=== PATIENT | male | born 1955 | race Caucasian/White ===

== ENCOUNTER → 2020-10-08 | Outpatient (CLI) | payer OTHER ==
--- NOTE | 2020-10-08 15:31 | RAD ---
EXAM: AP and lateral views left foot DATE: 10/08/2020 9:37 AM INDICATION: Reason: LEFT FOOT PAIN / Spl. Instructions: / History: COMPARISON: No Prior FINDINGS: AP and lateral views of the left foot were suited for evaluation. There is no evidence for acute frac ture or dislocation. Soft tissue swelling about the fifth MTP joint. Midfoot degenerative changes are seen. Calcaneal enthesopathy. IMPRESSION: No evidence of acute fracture or dislocation. Electronically signed by: Rohan Osullivan MD (10/08/2020 3:29 PM) [id number]
--- NOTE | 2020-10-08 15:32 | RAD ---
EXAM: AP and lateral views of left knee were suited for evaluation. DATE: 10/08/2020 9:37 AM INDICATION: Reason: LEFT FOOT AND KNEE PAIN / Spl. Instructions: / History: COMPARISON: No Prior FINDINGS: No evidence of acute fracture or dislocation. Medial cartilage joint space narrowing with small later al component osteophytes. Chondrocalcinosis. No knee joint effusion. However calcifications are seen. Mild decrease overall den sity. Small ossification at the medial aspect of the medial femoral condyle likely joint body. IMPRESSION: 1. Within the constraints of osteopenia, no evidence for acute fracture or dislocation. 2. Mild to moderate left knee joint osteoarthritis. 3. Chondrocalcinosis suggests component of COPD arthropathy. Electronically signed by: Rohan Osullivan MD (10/08/2020 3:30 PM) [id number]
== END ==
LOC: PMG 09:27
PROVIDERS: ATTEND Family Medicine
DX: M17.12 Unilateral primary osteoarthritis, left knee (principal); M85.88 Other specified disorders of bone density and structure, other site; M11.262 Other chondrocalcinosis, left knee
CPT/HCPCS: 73560; 73620

== ENCOUNTER → 2021-09-21 | Outpatient (CLI) | payer OTHER | LOC: LAB 14:43 | PROVIDERS: ATTEND Urology | DX: R97.20 Elevated prostate specific antigen [PSA] (principal) | CPT/HCPCS: G0103 ==

== ENCOUNTER 2021-10-02 11:25 | Emergency (ER) | payer MEDICARE, OTHER ==
[~2021-10-02] VITALS: Ht 175.3 cm; Wt 90.5 kg
[2021-10-02] MEDS ORDERED: ONDANSETRON PF 4 MG/2 ML VIAL. IVP ONE (11:45)
[2021-10-02] MEDS ORDERED: IV NORMAL SALINE 1,000ML 1,000 ML IV ONE (11:45)
--- NOTE | 2021-10-02 11:58 | PHYS DOC ---
Past History Past Surgical History: Other Additional Past Surgical Histo: Prostat Alcohol Use: None General Adult EDM: Chief Complaint: ABDOMINAL PAIN HPI: HPI: 65-year-old male presents with suprapubic abdominal pain and fever at home. He has had the symptoms for a couple of days. The abdominal pain is a cramping sensation. He denies any increased urinary frequency or dysuria. He did have a prostatectomy a few months ago. He has been doing well until now. He has no other significant surgical history. Review of Systems: Review of Systems: Constitutional: Denies fever or chills Eyes: Denies change in visual acuity HENT: Denies nasal congestion or sore throat Respiratory: Denies cough or shortness of breath Cardiovascular: Denies chest pain or edema GI: Suprapubic abdominal pain. Denies nausea, vomiting, bloody stools or diarrhea : Denies dysuria or increased urinary frequency. Musculoskeletal: Denies back pain or joint pain Integument: Denies rash Neurologic: Denies headache, focal weakness or sensory changes Endocrine: Denies polyuria or polydipsia Lymphatic: Denies swollen glands Psychiatric: Denies depression or anxiety Current Medications: Current Meds: Current Medications Medications (Trade) Dose Ordered Sig/Mateo Start Time Stop Time Status Last Admin Dose Admin Ondansetron HCl (Zofran) 4 mg 1X ONCE 10/02/21 11:45 10/02/21 11:50 DC Sodium Chloride 1,000 ml @ 1,000 mls/hr 1X ONCE 10/02/21 11:45 10/02/21 12:44 Allergies: Allergies: Allergies Coded Allergies Type Severity Reaction Last Updated Verified No Known Drug Allergies 10/02/21 No Physical Exam: PE: Constitutional: Well developed, well nourished, no acute distress, non-toxic appearance. [] HENT: Normocephalic, atraumatic, bilateral external ears normal, oropharynx moist, no oral exudates, nose normal. [] Eyes: PERRLA, EOMI, conjunctiva normal, no discharge. [] Neck: Normal range of motion, no tenderness, supple, no stridor. [] Cardiovascular: Heart rate regular rhythm, no murmur [] Lungs & Thorax: Bilateral breath sounds clear to auscultation [] Abdomen: Bowel sounds normal, soft, suprapubic tenderness, no masses, no pulsatile masses. [] Skin: Warm, dry, no erythema, no rash. [] Back: No tenderness, no CVA tenderness. [] Extremities: No tenderness, no cyanosis, no clubbing, ROM intact, no edema. [] Neurologic: Alert and oriented X 3, normal motor function, normal sensory function, no focal deficits noted. [] Psychologic: Affect normal, judgement normal, mood normal. [] Current Patient Data: Vital Signs: Vital Signs Date Time Temp Pulse Resp B/P (MAP) Pulse Ox O2 Delivery O2 Flow Rate FiO2 10/02/21 11:48 99.4 103 16 104/81 (89) 96 Room Air EKG: EKG: [] Radiology/Procedures: Radiology/Procedures: [] Impressions: Study: CT abdomen/pelvis with intravenous contrast Indication: Suprapubic pain. Comparison: None. Technique: Helical CT imaging performed of the abdomen and pelvis after the intravenous administration of 75 cc Omnipaque 300 contrast. Sagittal and coronal reformats were obtained. One or more of the following individualized dose reduction techniques were utilized for this examination: 1. Automated exposure control 2. Adjustment of the mA and/or kV according to patient size 3. Use of iterative reconstruction technique. Findings: Calcific coronary artery disease. Large hiatal hernia. No significant nodule or infiltrate at the lower lungs. Passive atelectasis along the medial left lower lobe adjacent to the hiatal hernia. Several low-attenuation foci within the liver the smaller of which are too small to characterize. The largest in the left hepatic lobe measures cystic density and is 1.5 cm AP. These are statistically most likely benign and less there is any pertinent clinical history that would suggest otherwise. Unremarkable gallbladder, biliary tree, pancreas, spleen and adrenal glands. Several subcentimeter hypoattenuating foci within both kidneys too small to characterize but statistically most likely benign. Upper pole left renal cyst measures simple density. No dedicated follow-up is needed per consensus recommendations. No hydronephrosis. Mildly thick-walled urinary bladder with surrounding inflammation. Mass effect on the bladder by a large fluid density collections within the space of Retzius. The collection on the left is greater in size measuring up to approximately 11.7 cm craniocaudal by 9.4 cm AP by 11.4 cm transverse. The collection on the right measures up to 5.8 cm craniocaudal by 8.7 cm AP by 3.5 cm transverse. Mild inflammation adjacent to these collections. The prostate is absent. Mild volume colonic stool burden. Normal appendix. No small bowel obstruction. The small portion of the stomach that remains below the diaphragm is unremarkable. Scattered calcified and noncalcified atheromatous plaque. No aortic aneurysm. No flow-limiting stenosis. Patent central portal veins and superior mesenteric vein. Both of the external iliac veins are compressed by the space of Retzius collections. No lymphadenopathy by size criteria. Retroperitoneal and iliac chain lymph nodes measure subcentimeter short axis. Scattered degenerative osseous findings. Chronic L4 height loss. Impression: 1. Mildly thick-walled urinary bladder which is deformed in the setting of prominent left larger than right space of Retzius fluid collections. In the setting of an absent prostate the collections are favored lymphoceles. The presumed lymphocele on the left measures up to 11.7 by 9.4 x 1.4 cm and on the right at 5.8 x 8.7 x 3.5 cm. Both of the collections compress the adjacent external iliac vein which could predispose to deep venous thrombosis. No hydronephrosis. 2. Large hiatal hernia. Calcific coronary artery disease favored hepatic and bilateral renal cysts though many are too small to characterize. Electronically signed by: SHASHA GAY MD (10/02/2021 1:47 PM) [id number] DICTATED AND SIGNED BY: SHASHA GAY MD DATE: 10/02/21 1329 CC: TAMIKO GARY DO; GABRIEL HOLLOWAY MD ~MTH0 0 Heart Score: C/O Chest Pain: N/A Risk Factors: Risk Factors: DM, Current or recent (<one month) smoker, HTN, HLP, family history of CAD, obesity. Risk Scores: Score 0 - 3: 2.5% MACE over next 6 weeks - Discharge Home Score 4 - 6: 20.3% MACE over next 6 weeks - Admit for Clinical Observation Score 7 - 10: 72.7% MACE over next 6 weeks - Early Invasive Strategies Course & Med Decision Making: Course & Med Decision Making Pertinent Labs and Imaging studies reviewed. (See chart for details) Patient's labs are significant for microcytic anemia. He has a potassium of 3.1. His urinalysis is negative for infection. The CT of the abdomen pelvis shows 2 large likely lymphoceles in the pelvis. See official read for more details. 1 of these is compressing compressing the external iliac vein. I will call the patient's urologist for consult about management. I spoke with the patient's urologist, Dr. Damian and he does not believe the patient needs to be admitted. He will see the patient in his office this week and discuss having a drain placed. He is stable for discharge at this time. [] Dragon Disclaimer: Dragon Disclaimer: This electronic medical record was generated, in whole or in part, using a voice recognition dictation system. Departure Departure: Impression: Primary Impression: Pelvic fluid collection Disposition: HOME / SELF CARE / HOMELESS Condition: STABLE Referrals: GABRIEL HOLLOWAY MD (PCP) Patient Instructions: Abdominal Pain, [id number] TAMIKO GARY DO Oct 02, 2021 11:57
[2021-10-02] MEDS ORDERED: IOHEXOL 300 MG/ML 75 ML VIAL. IV ONE (12:15)
[2021-10-02 12:28] LABS: BASO % 0 % (0-3); EOS # 0.1 x10^3/uL (0.0-0.7); EOS % 1 % (0-3); HEMATOCRIT 31.8 % (39.0-53.0); LYMPH # 0.5 x10^3/uL (1.0-4.8); LYMPH % 6 % (24-48); MEAN CORPUSCULAR HEMOGLOBIN 23 pg (25-35); MEAN CORPUSCULAR HGB CONC 31 g/dL (31-37); MEAN CORPUSCULAR VOLUME 72 fL (79-100); MONO # 1.3 x10^3/uL (0.0-1.1); MONO % 14 % (0-9); NEUT # 7.5 x10^3uL (1.8-7.7); NEUT % 79 % (31-73); PLATELET COUNT 220 x10^3/uL (140-400); RED BLOOD COUNT 4.41 x10^6/uL (4.30-5.70); RED CELL DISTRIBUTION WIDTH 16.8 % (11.5-14.5); WHITE BLOOD COUNT 9.5 x10^3/uL (4.0-11.0)
[2021-10-02 12:35] LABS: BACTERIA,URINE 0 /HPF (0-FEW); BILIRUBIN,URINE SMALL (NEG); CLARITY,URINE CLEAR; COLOR,URINE YELLOW; GLUCOSE,URINE NEG (NEG); HYALINE CASTS, URINE MOD /HPF; NITRITE,URINE NEG (NEG); RBC,URINE OCC /HPF (0-2); SQUAMOUS EPITHELIAL CELL,UR OCC /LPF; WBC,URINE OCC /HPF (0-4)
[2021-10-02 12:38] LABS: CALCIUM 8.4 mg/dL (8.5-10.1); CREATININE 1.1 mg/dL (0.7-1.3); POTASSIUM 3.1 mmol/L (3.5-5.1)
[2021-10-02 12:44] LABS: ALBUMIN 2.9 g/dL (3.4-5.0); ALBUMIN/GLOBULIN RATIO 0.6 (1.0-1.7); TOTAL BILIRUBIN 1.1 mg/dL (0.2-1.0); TOTAL PROTEIN 7.4 g/dL (6.4-8.2)
--- NOTE | 2021-10-02 13:49 | RAD ---
Study: CT abdomen/pelvis with intravenous contrast Indication: Suprapubic pain. Comparison: None. Technique: Helical CT imaging performed of the abdomen and pelvis after the intravenous administratio n of 75 cc Omnipaque 300 contrast. Sagittal and coronal reformats were obtained. One or more of the following individualized dose reduction techniques were utilized for this examinat ion: 1. Automated exposure control 2. Adjustment of the mA and/or kV according to patient size 3. Use of iterative reconstruction technique. Findings: Calcific coronary artery disease. Large hiatal hernia. No significant nodule or infiltrate at the low er lungs. Passive atelectasis along the medial left lower lobe adjacent to the hiatal hernia. Several low-attenuation foci within the liver the smaller of which are too small to characterize. The largest in the left hepatic lobe measures cystic density and is 1.5 cm AP. These are statistically m ost likely benign and less there is any pertinent clinical history that would suggest otherwise. Unre markable gallbladder, biliary tree, pancreas, spleen and adrenal glands. Several subcentimeter hypoat tenuating foci within both kidneys too small to characterize but statistically most likely benign. Up per pole left renal cyst measures simple density. No dedicated follow-up is needed per consensus jerri mmendations. No hydronephrosis. Mildly thick-walled urinary bladder with surrounding inflammation. Mass effect on the bladder by a la rge fluid density collections within the space of Retzius. The collection on the left is greater in s ize measuring up to approximately 11.7 cm craniocaudal by 9.4 cm AP by 11.4 cm transverse. The collec tion on the right measures up to 5.8 cm craniocaudal by 8.7 cm AP by 3.5 cm transverse. Mild inflamma tion adjacent to these collections. The prostate is absent. Mild volume colonic stool burden. Normal appendix. No small bowel obstruction. The small portion of t he stomach that remains below the diaphragm is unremarkable. Scattered calcified and noncalcified atheromatous plaque. No aortic aneurysm. No flow-limiting stenos is. Patent central portal veins and superior mesenteric vein. Both of the external iliac veins are co mpressed by the space of Retzius collections. No lymphadenopathy by size criteria. Retroperitoneal and iliac chain lymph nodes measure subcentimete r short axis. Scattered degenerative osseous findings. Chronic L4 height loss. Impression: 1. Mildly thick-walled urinary bladder which is deformed in the setting of prominent left larger hiren n right space of Retzius fluid collections. In the setting of an absent prostate the collections are favored lymphoceles. The presumed lymphocele on the left measures up to 11.7 by 9.4 x 1.4 cm and on t he right at 5.8 x 8.7 x 3.5 cm. Both of the collections compress the adjacent external iliac vein whi ch could predispose to deep venous thrombosis. No hydronephrosis. 2. Large hiatal hernia. Calcific coronary artery disease favored hepatic and bilateral renal cysts t kaylee many are too small to characterize. Electronically signed by: SHASHA GAY MD (10/02/2021 1:47 PM) [id number]
[2021-10-02 14:29] VITALS: BP 96/79
== END 2021-10-02 15:55 | disposition home or self-care (01) ==
LOC: ER 11:25
DX: R19.09 Other intra-abdominal and pelvic swelling, mass and lump (principal)
CPT/HCPCS: 36415; 74177; 80053; 81001; 85025; 96361; 96374; 99284; J2405; J7030; Q9967

== ENCOUNTER 2021-10-08 11:52 | Emergency (ER) | payer MEDICARE ==
[~2021-10-08] VITALS: Ht 175.3 cm; Wt 90.5 kg
--- NOTE | 2021-10-08 12:28 | PHYS DOC ---
Past History Additional Past Medical Histor: abdominal cysts Past Surgical History: Other Additional Past Surgical Histo: Prostate Alcohol Use: None Adult General Chief Complaint Chief Complaint: POST-OP PROBLEM HPI HPI Patient is a 65-year-old male presenting via POV for postoperative pain. He was seen here 6 days ago and had comprehensive ER work-up c most pertinent for CT abdomen pelvis imaging findings of large symptomatic bilateral lymphoceles. Patient prescribed antibiotics and followed up in outpatient setting and subsequently saw an interventional radiologist 2 days ago where he had bilateral lymphocele drainage performed in the outpatient setting. He brings a report stating that 80 mL was drained from the right side and 100 mL drained from the left. This was all performed under local anesthetic, no formal anesthesia, and that he was discharged shortly afterwards with no pain medications. Nonetheless, patient presents today with worsening suprapubic pain around site of initial injection. Denies any fever but admits feeling palpitations, states he feels dehydrated, and is anxious as he started developing diarrhea approximately 36 hours ago. He is worried because he was started on an antibiotic known to precipitate C. difficile. States shortly after starting antibiotic here October 02, he started having looser bowel movements than usual. Reports frequency was at his baseline but in the past 36 hours, he has been having profoundly smelly diarrhea with mucus formation every 2 hours Review of Systems Review of Systems Fourteen body systems of review of systems have been reviewed. See HPI for pertinent positives and negative responses, other luther all other systems are negative, non-pertinent or non-contributory Allergies Allergies Allergies Coded Allergies Type Severity Reaction Last Updated Verified No Known Drug Allergies 10/02/21 No Physical Exam Physical Exam Constitutional: Well developed, well nourished, no acute distress, non-toxic appearance. HENT: Normocephalic, atraumatic, bilateral external ears normal, oropharynx moist, no oral exudates, nose normal. Eyes: PERRLA, EOMI, conjunctiva normal, no discharge. Neck: Normal range of motion, no tenderness, supple, no stridor. Cardiovascular: Heart rate tachycardic, sinus rhythm, no murmurs rubs or gallops Lungs & Thorax: Bilateral breath sounds clear to auscultation Abdomen: Bowel sounds normal, soft, suprapubic tenderness to palpation immediately over site where outpatient IR procedure was performed that is otherwise well-healing without any appreciable fluctuant mass, drainage, exudate or other infectious findings. Guarding present without rebound, no masses, no pulsatile masses. Nonsurgical abdomen, no peritoneal signs Skin: Warm, dry, no erythema, no rash. Pale Back: No tenderness, no CVA tenderness. Extremities: No tenderness, no cyanosis, no clubbing, ROM intact, no edema. Neurologic: Alert and oriented X 3, grossly normal motor & sensory function, no focal deficits noted. Psychologic: Anxious affect and mood Current Patient Data Vital Signs Vital Signs Date Time Temp Pulse Resp B/P (MAP) Pulse Ox O2 Delivery O2 Flow Rate FiO2 10/08/21 12:08 98.8 109 20 114/51 (72) 98 Room Air Lab Results Laboratory Tests Test 10/08/21 12:17 10/08/21 12:36 10/08/21 13:00 10/08/21 14:01 Urine Collection Type Clean catch Urine Color Yellow Urine Clarity Clear Urine pH 5.5 Urine Specific Pavilion 1.010 Urine Protein Trace Urine Glucose (UA) Neg mg/dL Urine Ketones (Stick) Neg mg/dL Urine Blood Neg Urine Nitrite Neg Urine Bilirubin Neg Urine Urobilinogen Dipstick 0.2 mg/dL Urine Leukocyte Esterase Neg Urine RBC 0 /HPF Urine WBC 0 /HPF Urine Squamous Epithelial Cells Occ /LPF Urine Bacteria 0 /HPF White Blood Count 15.3 x10^3/uL Red Blood Count 4.13 x10^6/uL Hemoglobin 9.1 g/dL Hematocrit 29.6 % Mean Corpuscular Volume 72 fL Mean Corpuscular Hemoglobin 22 pg Mean Corpuscular Hemoglobin Concent 31 g/dL Red Cell Distribution Width 17.9 % Platelet Count 375 x10^3/uL Neutrophils (%) (Auto) 90 % Lymphocytes (%) (Auto) 3 % Monocytes (%) (Auto) 7 % Eosinophils (%) (Auto) 0 % Basophils (%) (Auto) 0 % Neutrophils # (Auto) 13.8 x10^3uL Lymphocytes # (Auto) 0.5 x10^3/uL Monocytes # (Auto) 1.0 x10^3/uL Eosinophils # (Auto) 0.0 x10^3/uL Basophils # (Auto) 0.0 x10^3/uL Segmented Neutrophils % 92 % Lymphocytes % 3 % Monocytes % 5 % Platelet Estimate Adequate Hypochromasia Mod Anisocytosis Slight Microcytosis Marked Sodium Level 141 mmol/L Potassium Level 3.9 mmol/L Chloride Level 104 mmol/L Carbon Dioxide Level 25 mmol/L Anion Gap 12 Blood Urea Nitrogen 32 mg/dL Creatinine 1.6 mg/dL Estimated GFR (Cockcroft-Gault) 43.5 BUN/Creatinine Ratio 20 Glucose Level 131 mg/dL Lactic Acid Level 2.0 mmol/L Calcium Level 8.5 mg/dL Total Bilirubin 0.7 mg/dL Aspartate Amino Transf (AST/SGOT) 37 U/L Alanine Aminotransferase (ALT/SGPT) 83 U/L Alkaline Phosphatase 124 U/L Total Protein 7.1 g/dL Albumin 2.3 g/dL Albumin/Globulin Ratio 0.5 Lipase 32 U/L SARS-CoV-2 Antigen (Rapid) Negative Troponin I High Sensitivity 6 ng/L Current Medications Medications (Trade) Dose Ordered Sig/Mateo Route PRN Reason Start Time Stop Time Status Last Admin Dose Admin Sodium Chloride 1,000 ml @ 1,000 mls/hr Q1H IV 10/08/21 12:30 10/08/21 13:29 DC 10/08/21 12:30 Fentanyl Citrate (Fentanyl 2ml Vial) 75 mcg 1X ONCE IVP 10/08/21 12:30 10/08/21 12:31 DC 10/08/21 12:40 Iohexol (Omnipaque 300 Mg/ml) 75 ml 1X ONCE IV 10/08/21 12:30 10/08/21 12:31 DC 10/08/21 12:44 Piperacillin Sod/ Tazobactam Sod 4.5 gm/Sodium Chloride 50 ml @ 100 mls/hr 1X ONCE IV 10/08/21 14:00 10/08/21 14:29 DC 10/08/21 14:50 Vancomycin HCl (Vancomycin Oral Solution) 125 mg [id number] PO 10/08/21 14:00 10/08/21 19:41 DC 10/08/21 17:00 Sodium Chloride 1,000 ml @ 1,000 mls/hr 1X ONCE IV 10/08/21 14:00 10/08/21 14:59 DC 10/08/21 14:00 Sodium Chloride 1,000 ml @ 1,000 mls/hr 1X ONCE IV 10/08/21 14:15 10/08/21 15:14 DC 10/08/21 14:15 Sodium Chloride 50 ml @ As Directed STK-MED ONCE .ROUTE 10/08/21 14:38 10/08/21 14:39 DC Piperacillin Sod/ Tazobactam Sod (Zosyn) 4.5 gm STK-MED ONCE IV 10/08/21 14:38 10/08/21 14:39 DC EKG EKG EKG ordered and interpreted by myself at 1416 hours as sinus rhythm at 95 bpm, unremarkable intervals, no axis deviation, no acute ischemic findings, no STEMI Radiology/Procedures Radiology/Procedures EXAM: CT Abdomen and Pelvis with IV contrast CLINICAL HISTORY: Reason: lower abdominal pain POD2 bilateral lymphocele drainage COMPARISON: To 02/13/2022 TECHNIQUE: Helical CT of the abdomen and pelvis was performed following the administration of intravenous contrast. Axial, coronal and sagittal reformatted images were generated. PQRS compliance statement - One or more of the following individualized dose reduction techniques were utilized for this study: 1. Automated exposure control 2. Adjustment of the mA and/or kV according to patient size 3. Use of iterative reconstruction technique FINDINGS: Lower Chest: Linear opacities left lower lobe and right lower lobe likely scarring/atelectasis. Moderate hiatal hernia. Abdomen and Pelvis: Subcentimeter hypodense hepatic lesions, grossly stable. Gallbladder is unremarkable. Spleen and adrenal glands are unremarkable. Pancreas is normal in appearance. Navicular ductal dilatation. Symmetric nephrograms. Left upper pole renal cyst. No hydronephrosis. No hydroureter. Diffuse bladder wall thickening likely cystitis. Moderate colonic stool content is seen. Appendix is normal. There is infiltration about the right colon. A 7.6 x 11.1 cm peripherally enhancing fluid collection is seen in the lower left pelvis with internal foci of gas. In addition in the right pelvis there is a 8.8 x 3.3 cm collection. Compared to 10/02/2021 these collections are grossly stable in size although the wall thickening has increased. These collections result in mass effect on the adjacent iliac veins Fat-containing inguinal hernias bilaterally. Trace fat-containing periumbilical hernia. Hip joint degenerative changes are seen. Degenerative changes of the lower lumbar spine. IMPRESSION: 1. There is a peripherally enhancing collection in the left pelvis with internal foci of gas, stable in size to 10/02/2021. The foci of gas may represent secondary infection or iatrogenic. 2. Bladder wall thickening likely cystitis. 3. Diffuse infiltration about the right colon consistent with colitis, possibly infectious or inflammatory in nature. Electronically signed by: Rohan Osullivan MD (10/08/2021 1:14 PM) [facility] Heart Score C/O Chest Pain: No Risk Factors: Risk Factors: DM, Current or recent (<one month) smoker, HTN, HLP, family history of CAD, obesity. Risk Scores: Risk Factors: DM, Current or recent (<one month) smoker, HTN, HLP, family history of CAD, obesity. Course & Med Decision Making Course & Med Decision Making ABCs unremarkable HPI physical exam and comprehensive ER work-up concerning for presumed C. difficile colitis in setting of recent antibiotic and various healthcare facility exposure. Classifies as severe colitis given WBC >15 and creatinine >1.5 2 L IV fluid, IV Zosyn, n.p.o. vancomycin started. Patient's discomfort improved with provided pain medication Nonetheless, I discussed case with patient and hospitalist. Joint decision among all to transfer for continued inpatient medical management as patient is high risk for decompensation if discharged home with attempted outpatient treatment Dr. Bush, accepted patient under his care for hospital transfer to [facility]. Patient started on p.o. vancomycin and recommended patient be switched to IV Zosyn instead of continuing p.o. Keflex Patient stable throughout entirety of ER stay, my shift ended and patient still pending hospital transfer at this time. Comprehensive signout given to oncoming physician. Please defer to Dr. Huffman's documentation if further noteworthy events arise in ER pending transfer Dragon Disclaimer Dragon Disclaimer This electronic medical record was generated, in whole or in part, using a voice recognition dictation system. Departure Departure: Impression: Primary Impression: Colitis presumed infectious Additional Impression: Septic colitis Disposition: 02 [facility] ([facility]) Admitting Physician: Francesco Bush Condition: STABLE Referrals: GABRIEL HOLLOWAY MD (PCP) Problem Qualifiers WALLY ABEL DO Oct 08, 2021 12:28
[2021-10-08] MEDS ORDERED: IV NORMAL SALINE 1,000ML 1,000 ML IV SCH (12:30)
[2021-10-08] MEDS ORDERED: IOHEXOL 300 MG/ML 75 ML VIAL. IV ONE (12:30)
[2021-10-08 12:54] LABS: BASO % 0 % (0-3); EOS % 0 % (0-3); HEMATOCRIT 29.6 % (39.0-53.0); HEMOGLOBIN 9.1 g/dL (13.0-17.5); LYMPH # 0.5 x10^3/uL (1.0-4.8); LYMPH % 3 % (24-48); MEAN CORPUSCULAR HEMOGLOBIN 22 pg (25-35); MEAN CORPUSCULAR HGB CONC 31 g/dL (31-37); MEAN CORPUSCULAR VOLUME 72 fL (79-100); MONO % 7 % (0-9); NEUT # 13.8 x10^3uL (1.8-7.7); NEUT % 90 % (31-73); PLATELET COUNT 375 x10^3/uL (140-400); RED BLOOD COUNT 4.13 x10^6/uL (4.30-5.70); RED CELL DISTRIBUTION WIDTH 17.9 % (11.5-14.5); WHITE BLOOD COUNT 15.3 x10^3/uL (4.0-11.0)
[2021-10-08 13:05] LABS: CALCIUM 8.5 mg/dL (8.5-10.1); CREATININE 1.6 mg/dL (0.7-1.3); GFR 43.5; POTASSIUM 3.9 mmol/L (3.5-5.1)
[2021-10-08 13:11] LABS: ALBUMIN 2.3 g/dL (3.4-5.0); ALBUMIN/GLOBULIN RATIO 0.5 (1.0-1.7); TOTAL BILIRUBIN 0.7 mg/dL (0.2-1.0); TOTAL PROTEIN 7.1 g/dL (6.4-8.2)
--- NOTE | 2021-10-08 13:17 | RAD ---
EXAM: CT Abdomen and Pelvis with IV contrast CLINICAL HISTORY: Reason: lower abdominal pain POD2 bilateral lymphocele drainage COMPARISON: To 02/13/2022 TECHNIQUE: Helical CT of the abdomen and pelvis was performed following the administration of intrave nous contrast. Axial, coronal and sagittal reformatted images were generated. PQRS compliance statement - One or more of the following individualized dose reduction techniques wer e utilized for this study: 1. Automated exposure control 2. Adjustment of the mA and/or kV according to patient size 3. Use of iterative reconstruction technique FINDINGS: Lower Chest: Linear opacities left lower lobe and right lower lobe likely scarring/atelectasis. Moderate hiatal he rnia. Abdomen and Pelvis: Subcentimeter hypodense hepatic lesions, grossly stable. Gallbladder is unremarkable. Spleen and adre nal glands are unremarkable. Pancreas is normal in appearance. Navicular ductal dilatation. Symmetric nephrograms. Left upper pole renal cyst. No hydronephrosis. No hydroureter. Diffuse bladder wall thi ckening likely cystitis. Moderate colonic stool content is seen. Appendix is normal. There is infiltration about the right col on. A 7.6 x 11.1 cm peripherally enhancing fluid collection is seen in the lower left pelvis with interna l foci of gas. In addition in the right pelvis there is a 8.8 x 3.3 cm collection. Compared to 10/02/19 22 these collections are grossly stable in size although the wall thickening has increased. These col lections result in mass effect on the adjacent iliac veins Fat-containing inguinal hernias bilaterally. Trace fat-containing periumbilical hernia. Hip joint degenerative changes are seen. Degenerative changes of the lower lumbar spine. IMPRESSION: 1. There is a peripherally enhancing collection in the left pelvis with internal foci of gas, stable in size to 10/02/2021. The foci of gas may represent secondary infection or iatrogenic. 2. Bladder wall thickening likely cystitis. 3. Diffuse infiltration about the right colon consistent with colitis, possibly infectious or inflam matory in nature. Electronically signed by: Rohan Osullivan MD (10/08/2021 1:14 PM) [facility]
[2021-10-08 13:27] LABS: % LYMPHS 3 % (24-48); % MONOS 5 % (0-10); % SEGS 92 % (35-66); HYPOCHROMIA MOD; PLT ESTIMATE ADEQUATE (ADEQUATE)
[2021-10-08 13:28] LABS: ANISOCYTOSIS SLIGHT; MICROCYTOSIS MARKED
[2021-10-08] MEDS: VANCOMYCIN 125 MG/2.5 ML ORAL SOLUTION. PO SCH ×2 (14:00→17:00)
[2021-10-08] MEDS ORDERED: PIPERACILLIN/TAZOBACTAM 4.5 GM in IV NORMAL SALINE 50ML 50 ML IV ONE (14:00)
[2021-10-08] MEDS ORDERED: IV NORMAL SALINE 1,000ML 1,000 ML IV ONE ×2 (14:00→14:15)
[2021-10-08] MEDS ORDERED: PIPERACILLIN/TAZOBACTAM 4.5 GM VIAL IV ONE (14:38)
[2021-10-08] MEDS ORDERED: IV NORMAL SALINE 50ML 50 ML ONE (14:38)
[2021-10-08 15:29] LABS: BACTERIA,URINE 0 /HPF (0-FEW); BILIRUBIN,URINE NEG (NEG); CLARITY,URINE CLEAR; COLOR,URINE YELLOW; GLUCOSE,URINE NEG (NEG); NITRITE,URINE NEG (NEG); RBC,URINE 0 /HPF (0-2); SQUAMOUS EPITHELIAL CELL,UR OCC /LPF; UROBILINOGEN,URINE 0.2 mg/dL (0.2 mg/dL); WBC,URINE 0 /HPF (0-4)
--- NOTE | 2021-10-08 16:02 | EKG ---
[address] [address] Test Date: 2021-10-08 Test Time: 14:06:56 Pat Name: JUAN CRISTOBAL Department: Room: Gender: M Radiologic Therapist: CLIVE : 1955 Requested By: WALLY ABEL Order Number: [id number] Reading MD: Saqib Valladares MD Measurements Intervals [place] Rate: 95 P: 34 KS: 184 QRS: -9 QRSD: 88 T: 17 QT: 350 QTc: 443 Interpretive Statements SINUS RHYTHM Electronically Signed On 10-10-2021 8:24:28 [employer] by Saqib Valladares MD
[2021-10-08 19:00] VITALS: BP 125/78
== END 2021-10-08 19:30 | disposition short-term general hospital (02) ==
LOC: ER 11:52
DX: A09 Infectious gastroenteritis and colitis, unspecified (principal); G89.18 Other acute postprocedural pain; Z20.822 Contact with and (suspected) exposure to COVID-19
CPT/HCPCS: 36415; 74177; 80053; 81001; 83605; 83690; 84484; 85007; 85025; 87040; 87426; 93005; 96361; 96365; 96375; 99285; C9803; J2543; J3010; J7030; Q9967; U0003

== ENCOUNTER → 2021-10-24 | Outpatient (CLI) | payer MEDICARE ==
[2021-10-08 19:00] VITALS: BP 125/78
[2021-10-24 10:13] LABS: HEMOGLOBIN 9.7 g/dL (13.0-17.5); RED BLOOD COUNT 4.35 x10^6/uL (4.30-5.70); RED CELL DISTRIBUTION WIDTH 20.2 % (11.5-14.5)
[2021-10-24 10:47] LABS: CREATININE 0.9 mg/dL (0.7-1.3); GFR 84.4
== END ==
LOC: SPEC 10:02
PROVIDERS: ATTEND Internal Medicine Infectious Disease
DX: Z45.2 Encounter for adjustment and management of vascular access device (principal)
CPT/HCPCS: 36415; 82565; 84520; 85027

== ENCOUNTER → 2021-11-01 | Outpatient (CLI) | payer MEDICARE ==
[2021-10-08 19:00] VITALS: BP 125/78
[2021-11-01 12:43] LABS: HEMATOCRIT 30.6 % (39.0-53.0); HEMOGLOBIN 9.5 g/dL (13.0-17.5); RED BLOOD COUNT 4.11 x10^6/uL (4.30-5.70); RED CELL DISTRIBUTION WIDTH 20.9 % (11.5-14.5); WHITE BLOOD COUNT 5.7 x10^3/uL (4.0-11.0)
[2021-11-01 12:49] LABS: CREATININE 0.6 mg/dL (0.7-1.3); GFR 134.8
== END ==
LOC: SPEC 12:30
PROVIDERS: ATTEND Internal Medicine Infectious Disease
DX: Z45.2 Encounter for adjustment and management of vascular access device (principal)
CPT/HCPCS: 36415; 82565; 84520; 85027

== ENCOUNTER → 2021-11-07 | Outpatient (CLI) | payer MEDICARE ==
[2021-10-08 19:00] VITALS: BP 125/78
[2021-11-07 18:33] LABS: BASO # 0.1 x10^3/uL (0.0-0.2); BASO % 3 % (0-3); EOS # 0.2 x10^3/uL (0.0-0.7); EOS % 4 % (0-3); HEMATOCRIT 30.4 % (39.0-53.0); HEMOGLOBIN 9.6 g/dL (13.0-17.5); LYMPH % 20 % (24-48); MEAN CORPUSCULAR HEMOGLOBIN 23 pg (25-35); MEAN CORPUSCULAR HGB CONC 31 g/dL (31-37); MEAN CORPUSCULAR VOLUME 74 fL (79-100); MONO # 0.8 x10^3/uL (0.0-1.1); MONO % 15 % (0-9); NEUT % 59 % (31-73); PLATELET COUNT 255 x10^3/uL (140-400); RED BLOOD COUNT 4.11 x10^6/uL (4.30-5.70); RED CELL DISTRIBUTION WIDTH 21.6 % (11.5-14.5)
[2021-11-07 18:34] LABS: GFR 74.8
== END ==
LOC: LAB 17:22
PROVIDERS: ATTEND Internal Medicine Infectious Disease
DX: Z45.2 Encounter for adjustment and management of vascular access device (principal)
CPT/HCPCS: 36415; 82565; 84520; 85025

== ENCOUNTER → 2021-11-14 | Outpatient (CLI) | payer MEDICARE ==
[2021-11-14 17:48] LABS: CREATININE 0.8 mg/dL (0.7-1.3); GFR 96.7
[2021-11-14 18:10] LABS: BASO % 1 % (0-3); EOS # 0.2 x10^3/uL (0.0-0.7); EOS % 4 % (0-3); HEMATOCRIT 32.5 % (39.0-53.0); HEMOGLOBIN 10.1 g/dL (13.0-17.5); LYMPH # 1.2 x10^3/uL (1.0-4.8); LYMPH % 29 % (24-48); MEAN CORPUSCULAR HEMOGLOBIN 23 pg (25-35); MEAN CORPUSCULAR HGB CONC 31 g/dL (31-37); MEAN CORPUSCULAR VOLUME 74 fL (79-100); MONO # 0.7 x10^3/uL (0.0-1.1); MONO % 17 % (0-9); NEUT # 2.1 x10^3uL (1.8-7.7); NEUT % 49 % (31-73); PLATELET COUNT 312 x10^3/uL (140-400); RED BLOOD COUNT 4.39 x10^6/uL (4.30-5.70); RED CELL DISTRIBUTION WIDTH 21.3 % (11.5-14.5); WHITE BLOOD COUNT 4.3 x10^3/uL (4.0-11.0)
[2021-11-14 20:36] LABS: HYPOCHROMIA MOD; PLT ESTIMATE ADEQUATE (ADEQUATE)
[2021-11-14 20:37] LABS: ANISOCYTOSIS MOD; MICROCYTOSIS SLIGHT
== END ==
LOC: LAB 17:11
PROVIDERS: ATTEND Internal Medicine Infectious Disease
DX: Z45.2 Encounter for adjustment and management of vascular access device (principal)
CPT/HCPCS: 36415; 82565; 84520; 85025